=== PATIENT | female | born 2000 | race Two or more races ===

== ENCOUNTER 2020-01-09 09:06 | Emergency (ER) | payer BC ==
--- NOTE | 2020-01-09 09:39 | RAD ---
Portable frontal chest radiograph: 01/09/2020 COMPARISON: None HISTORY: Shortness of breath, dry cough FINDINGS: Lungs are clear. Heart and mediastinal contours appear within normal limits. IMPRESSION: No acute findings.
[2020-01-10 13:00] LABS: SARS-CoV-2 MS2 Positive; SARS-CoV-2 N Gene Negative; SARS-CoV-2 S Gene Negative; SARS-CoV-2 by NAA Not Detected (NotDetected); SARS-CoV-2 orf1ab Negative
== END 2020-01-09 11:10 | disposition home or self-care (01) ==
LOC: ERS 09:06
DX: R06.02 Shortness of breath (principal); R05 Cough; Z20.828 Contact with and (suspected) exposure to other viral communicable diseases; F32.9 Major depressive disorder, single episode, unspecified
CPT/HCPCS: 71045; 87635; U0003